=== PATIENT | female | born 1975 | race African-American/Black ===

== ENCOUNTER 2016-03-22 09:53 | Emergency (ER) | payer OTHER ==
[~2016-03-22] VITALS: Ht 170.2 cm; Wt 100.0 kg
[~2016-03-22 09:53] MED LIST: DARV PO; Z.0.NO CURRENT MEDS
[2016-03-22 09:55] VITALS: BP 186/102; PULSE 98; RESP 24; TEMP 98.3; O2SAT 99
[2016-03-22 10:07] VITALS: BP 177/100; PULSE 91; RESP 24; TEMP 98.6; O2SAT 99
[2016-03-22] MEDS ORDERED: SODIUM CHLOR 0.9% 1000 ML INJ 1,000 ML IV SCH (10:10)
[2016-03-22] MEDS ORDERED: PERC10TA27 PO (10:12)
[2016-03-22] MEDS ORDERED: AMLO10TA2 PO (10:12)
[2016-03-22] MEDS ORDERED: SODIUM CHLORIDE 0.9% FLUSH 5 ML FLUSH IVF PRN (10:15)
[2016-03-22] MEDS ORDERED: ONDANSETRON HCL 4 MG/2 ML VIAL IVP ONE (10:15)
[2016-03-22] MEDS ORDERED: KETOROLAC TROMETHAMINE 30 MG/ML (IVP) VIAL IVP ONE (10:15)
[2016-03-22] MEDS ORDERED: PANTOPRAZOLE SODIUM 40 MG VIAL IVP ONE (10:15)
--- NOTE | 2016-03-22 10:18 | PD ---
HPI Chief Complaint: Abdominal Pain Time Seen by Provider: 10:06 Travel History International Travel<30 days: No Contact w/Intl Traveler<30days: No Traveled to known affect area: No History of Present Illness HPI 40yo F with PMH of HTN noncompliant with amlodipine for 2 weeks presents to the ED with c/o epigastric abdominal pain that radiates to left and right upper abdomen for 1 day. States it is sharp and constant. +Nausea. Denies any fever , chest pain, sob, vomiting, weakness or numbness. Pt denies any chronic alcohol use. PFSH Past Medical History Diminished Hearing: No Hypertension: Yes (NOT ON MEDS) Immunizations Current: Yes Menopausal: No : 6 Para: 6 Tubal Ligation: Yes Social History Alcohol Use: No Tobacco Use: No Substance Use: No Allergies-Medications (Allergen,Severity, Reaction): Coded Allergies: No Known Allergies (Verified , 03/22/16) Reported Meds & Prescriptions Reported Meds & Active Scripts Active Omeprazole 40 Mg Cap 40 Mg PO DAILY Reported Percocet (Oxycodone-Acetaminophen) 10-325 mg Tab 1 Tab PO Q4H PRN Amlodipine (Amlodipine Besylate) 10 Mg Tab 10 Mg PO DAILY Review of Systems Except as stated in HPI: all other systems reviewed are Neg Physical Exam Narrative GENERAL: 40yo F in mild distress. SKIN: Warm and dry. HEAD: Atraumatic. Normocephalic. EYES: Pupils equal and round. No scleral icterus. No injection or drainage. ENT: No nasal bleeding or discharge. Mucous membranes pink and moist. NECK: Trachea midline. No JVD. CARDIOVASCULAR: Regular rate and rhythm. No murmur appreciated. RESPIRATORY: No accessory muscle use. Clear to auscultation. Breath sounds equal bilaterally. GASTROINTESTINAL: Abdomen soft, +Epigastric, left upper quadrant. No rebound tenderness or guarding. MUSCULOSKELETAL: No obvious deformities. No clubbing. No cyanosis. No edema. NEUROLOGICAL: Awake and alert. No obvious cranial nerve deficits. Motor grossly within normal limits. Normal speech. PSYCHIATRIC: Appropriate mood and affect; insight and judgment normal. Data Data Last Documented VS Vital Signs Date Time Temp Pulse Resp B/P Pulse Ox O2 Delivery O2 Flow Rate FiO2 03/22/16 10:07 98.6 91 24 177/100 99 03/22/16 09:55 Room Air Orders Complete Blood Count With Diff (03/22/16 10:10) Comprehensive Metabolic Panel (03/22/16 10:10) Lipase (03/22/16 10:10) Prothrombin Time / Inr (Pt) (03/22/16 10:10) Act Partial Throm Time (Ptt) (03/22/16 10:10) Urinalysis - C+S If Indicated (03/22/16 10:10) Ondansetron Inj (Zofran Inj) (03/22/16 10:15) Pantoprazole Inj (Protonix Inj) (03/22/16 10:15) Sodium Chlor 0.9% 1000 Ml Inj (Ns 1000 M (03/22/16 10:10) Sodium Chloride 0.9% Flush (Ns Flush) (03/22/16 10:15) Electrocardiogram (03/22/16 10:10) Ketorolac Inj (Toradol Inj) (03/22/16 10:15) Ed Urine Pregnancytest Poc (03/22/16 10:10) Amlodipine (Norvasc) (03/22/16 10:30) Ct Abd/Pel W Iv Contrast(Rout) (03/22/16 ) Morphine Inj (Morphine Inj) (03/22/16 11:30) Iohexol 350 Inj (Omnipaque 350 Inj) (03/22/16 13:10) Labs Laboratory Tests Test 03/22/16 10:20 White Blood Count 5.6 TH/MM3 Red Blood Count 4.00 MIL/MM3 Hemoglobin 9.9 GM/DL Hematocrit 31.3 % Mean Corpuscular Volume 78.2 FL Mean Corpuscular Hemoglobin 24.8 PG Mean Corpuscular Hemoglobin 31.7 % Concent Red Cell Distribution Width 14.0 % Platelet Count 211 TH/MM3 Mean Platelet Volume 8.7 FL Neutrophils (%) (Auto) 77.5 % Lymphocytes (%) (Auto) 12.4 % Monocytes (%) (Auto) 8.0 % Eosinophils (%) (Auto) 1.6 % Basophils (%) (Auto) 0.5 % Neutrophils # (Auto) 4.3 TH/MM3 Lymphocytes # (Auto) 0.7 TH/MM3 Monocytes # (Auto) 0.4 TH/MM3 Eosinophils # (Auto) 0.1 TH/MM3 Basophils # (Auto) 0.0 TH/MM3 CBC Comment AUTO DIFF Differential Comment AUTO DIFF CONFIRMED Platelet Estimate NORMAL Platelet Morphology Comment NORMAL Prothrombin Time 10.6 SEC Prothromb Time International 1.0 RATIO Ratio Activated Partial 28.9 SEC Thromboplast Time Urine Color YELLOW Urine Turbidity HAZY Urine pH 6.5 Urine Specific [place] 1.018 Urine Protein NEG mg/dL Urine Glucose (UA) NEG mg/dL Urine Ketones NEG mg/dL Urine Occult Blood NEG Urine Nitrite NEG Urine Bilirubin NEG Urine Urobilinogen LESS THAN 2.0 MG/DL Urine Leukocyte Esterase MOD Urine RBC 1 /hpf Urine WBC 8 /hpf Urine Squamous Epithelial 29 /hpf Cells Urine Bacteria RARE /hpf Urine Mucus FEW /lpf Microscopic Urinalysis Comment CULT NOT INDICATED Sodium Level 139 MEQ/L Potassium Level 3.8 MEQ/L Chloride Level 105 MEQ/L Carbon Dioxide Level 25.9 MEQ/L Anion Gap 8 MEQ/L Blood Urea Nitrogen 12 MG/DL Creatinine 0.97 MG/DL Estimat Glomerular Filtration 76 ML/MIN Rate Random Glucose 81 MG/DL Calcium Level 8.4 MG/DL Total Bilirubin 0.5 MG/DL Aspartate Amino Transf 21 U/L (AST/SGOT) Alanine Aminotransferase 24 U/L (ALT/SGPT) Alkaline Phosphatase 66 U/L Total Protein 7.2 GM/DL Albumin 3.2 GM/DL Lipase 99 U/L [facility] Medical Decision Making Medical Screen Exam Complete: Yes Emergency Medical Condition: Yes Interpretation(s) Laboratory Tests Test 03/22/16 10:20 White Blood Count 5.6 TH/MM3 (4.0-11.0) Red Blood Count 4.00 MIL/MM3 (4.00-5.30) Hemoglobin 9.9 GM/DL (11.6-15.3) Hematocrit 31.3 % (35.0-46.0) Mean Corpuscular Volume 78.2 FL (80.0-100.0) Mean Corpuscular Hemoglobin 24.8 PG (27.0-34.0) Mean Corpuscular Hemoglobin 31.7 % Concent (32.0-36.0) Red Cell Distribution Width 14.0 % (11.6-17.2) Platelet Count 211 TH/MM3 (150-450) Mean Platelet Volume 8.7 FL (7.0-11.0) Neutrophils (%) (Auto) 77.5 % (16.0-70.0) Lymphocytes (%) (Auto) 12.4 % (9.0-44.0) Monocytes (%) (Auto) 8.0 % (0.0-8.0) Eosinophils (%) (Auto) 1.6 % (0.0-4.0) Basophils (%) (Auto) 0.5 % (0.0-2.0) Neutrophils # (Auto) 4.3 TH/MM3 (1.8-7.7) Lymphocytes # (Auto) 0.7 TH/MM3 (1.0-4.8) Monocytes # (Auto) 0.4 TH/MM3 (0-0.9) Eosinophils # (Auto) 0.1 TH/MM3 (0-0.4) Basophils # (Auto) 0.0 TH/MM3 (0-0.2) CBC Comment AUTO DIFF Differential Comment AUTO DIFF CONFIRMED Platelet Estimate NORMAL (NORMAL) Platelet Morphology Comment NORMAL (NORMAL) Prothrombin Time 10.6 SEC (9.8-11.6) Prothromb Time International 1.0 RATIO Ratio Activated Partial 28.9 SEC Thromboplast Time (24.3-30.1) Urine Color YELLOW (YELLW/STRAW) Urine Turbidity HAZY (CLEAR) Urine pH 6.5 (5.0-8.5) Urine Specific [place] 1.018 (1.002-1.035) Urine Protein NEG mg/dL (NEG-TRACE) Urine Glucose (UA) NEG mg/dL (NEG) Urine Ketones NEG mg/dL (NEG) Urine Occult Blood NEG (NEG) Urine Nitrite NEG (NEG) Urine Bilirubin NEG (NEG) Urine Urobilinogen LESS THAN 2.0 MG/DL (LESS THAN 2.0) Urine Leukocyte Esterase MOD (NEG) Urine RBC 1 /hpf (0-3) Urine WBC 8 /hpf (0-5) Urine Squamous Epithelial 29 /hpf (0-5) Cells Urine Bacteria RARE /hpf (NONE) Urine Mucus FEW /lpf (OCC) Microscopic Urinalysis Comment CULT NOT INDICATED Sodium Level 139 MEQ/L (136-145) Potassium Level 3.8 MEQ/L (3.5-5.1) Chloride Level 105 MEQ/L (98-107) Carbon Dioxide Level 25.9 MEQ/L (21.0-32.0) Anion Gap 8 MEQ/L (5-15) Blood Urea Nitrogen 12 MG/DL (7-18) Creatinine 0.97 MG/DL (0.50-1.00) Estimat Glomerular Filtration 76 ML/MIN (>89) Rate Random Glucose 81 MG/DL (74-106) Calcium Level 8.4 MG/DL (8.5-10.1) Total Bilirubin 0.5 MG/DL (0.2-1.0) Aspartate Amino Transf 21 U/L (15-37) (AST/SGOT) Alanine Aminotransferase 24 U/L (10-53) (ALT/SGPT) Alkaline Phosphatase 66 U/L (45-117) Total Protein 7.2 GM/DL (6.4-8.2) Albumin 3.2 GM/DL (3.4-5.0) Lipase 99 U/L (73-393) Last Impressions Abdomen/Pelvis CT 03/22/16 0000 Signed Impressions: Service Date/Time: Tuesday, March 22, 2016 12:58 - CONCLUSION: 1. No evidence of acute abdominal or pelvic process. No masses are identified. 2. 4 cm left adnexal cyst. Followup ultrasound in 6 months is recommended if clinically indicated. 3. Possible submucosal fibroid versus endometrial polyp. Ultrasound is recommended Bry Torres MD EKG: NSR 83bpm. Normal axis. No ST segment elevation or depression. Differential Diagnosis Pancreatitis vs. colitis vs. cholecystitis vs. gastritis Narrative Course 40yo F with abdominal pain. Labs reviewed, no leukocytosis. H/H low at 9.9/ 31.3, at baseline. CMP unremarkable. Lipase 99. UA showed mode leukocyte but contaminated with 29 squamous. Blood pressure elevated but pt has been noncompliant with amlodipine so given amlodipine 10mg PO here. Pt given toradol but still with abdominal pain. Pt given morphine and pain has resolved. CTa/p showed no evidence of acute abdominal or pelvic process. 4cm left adnexal cyst. Instructed pt to follow up with ultrasound. Return precautions given. Diagnosis Primary Impression: Gastritis Qualified Code: K29.00 - Acute gastritis without hemorrhage, unspecified gastritis type Patient Instructions: General Instructions Departure Forms: Tests/Procedures Additional Instructions: Please return to the ED if symptoms worsen. Please follow up with your PMD in 3 -7 days. Please follow up with [facility] for 4cm left adnexal cyst. Med/Other Pt SpecificInfo: Prescription(s) given Scripts Omeprazole 40 Mg Cap40 Mg PO DAILY #10 CAP Ref 0 Prov:Minerva Simon DO 03/22/16 Disposition: 01 DISCHARGE HOME Condition: Stable Minerva Simon DO Mar 22, 2016 10:17
[2016-03-22 10:43] LABS: AUTOMATED NEUTROPHIL # 4.3 TH/MM3 (1.8-7.7); BASOPHIL % 0.5 % (0.0-2.0); EOSINOPHIL # 0.1 TH/MM3 (0-0.4); EOSINOPHIL % 1.6 % (0.0-4.0); HEMATOCRIT 31.3 % (35.0-46.0); LYMPH % 12.4 % (9.0-44.0); LYMPHOCYTE # 0.7 TH/MM3 (1.0-4.8); MEAN CELL VOLUME 78.2 FL (80.0-100.0); MEAN CORPUSCULAR HEMOGLOBIN 24.8 PG (27.0-34.0); MEAN CORPUSCULAR HGB CONC 31.7 % (32.0-36.0); NEUT % 77.5 % (16.0-70.0); PLATELET COUNT 211 TH/MM3 (150-450); WHITE BLOOD COUNT 5.6 TH/MM3 (4.0-11.0)
[2016-03-22 10:45] LABS: BACTERIA, URINE RARE /hpf; BLOOD, URINE NEG (NEG); GLUCOSE,URINE NEG (NEG); KETONE, URINE NEG (NEG); MUCUS URINE FEW /lpf (OCC); NITRITE,URINE NEG (NEG); PH, URINE 6.5 (5.0-8.5); SQUAMOUS EPITHELIAL CELL URINE 29 /hpf (0-5); URINE COLOR YELLOW (YELLW/STRAW)
[2016-03-22 10:46] LABS: COMMENT (UR) CULT NOT INDICATED; CULTURE IF INDICATED CULT NOT INDICATED
[2016-03-22 10:49] LABS: HEMO FLAGS AUTO DIFF
[2016-03-22 10:59] LABS: APTT (PATIENT) 28.9 SEC (24.3-30.1); PROTHROMBIN TIME - PATIENT 10.6 SEC (9.8-11.6)
[2016-03-22 11:03] LABS: ALT (GPT) 24 U/L (10-53); ANION GAP 8 MEQ/L (5-15); AST (GOT) 21 U/L (15-37); BICARBONATE 25.9 MEQ/L (21.0-32.0); BLOOD UREA NITROGEN 12 MG/DL (7-18); CHLORIDE 105 MEQ/L (98-107); GLOMERULAR FILTRATION RATE 76 ML/MIN (>89); POTASSIUM 3.8 MEQ/L (3.5-5.1); SODIUM (NA) 139 MEQ/L (136-145)
[2016-03-22 11:05] LABS: ALKALINE PHOSPHATASE 66 U/L (45-117); TOTAL BILIRUBIN ADULT 0.5 MG/DL (0.2-1.0)
[2016-03-22 11:24] LABS: SCAN/DIFF AUTO DIFF CONFIRMED
[2016-03-22 11:25] LABS: PLATELET ESTIMATE SMEAR NORMAL (NORMAL); PLATELET MORPHOLOGY NORMAL (NORMAL)
[2016-03-22] MEDS ORDERED: MORPHINE SULFATE 4 MG/ML INJ IV PUSH ONE (11:30)
[2016-03-22 13:00] VITALS: BP 139/88; RESP 18; O2SAT 99
[2016-03-22] MEDS ORDERED: IOHEXOL 350 MG/ML 10 ML VIAL (for RAD DIAG) IV ONE (13:10)
--- NOTE | 2016-03-22 14:30 | RADRPT ---
EXAM DATE/TIME: 03/22/2016 12:58 [facility] COMPARISON: No previous studies available for comparison. INDICATIONS : Epigastric pain with nausea. IV CONTRAST: 90 cc Omnipaque 350 (iohexol) IV ORAL CONTRAST: No oral contrast ingested. RADIATION DOSE: 10.92 CTDIvol (mGy) MEDICAL HISTORY : Hypertension. SURGICAL HISTORY : Tubal ligation. ENCOUNTER: Initial ACUITY: 1 day PAIN SCALE: 5/10 LOCATION: Bilateral upper quadrant TECHNIQUE: Volumetric scanning of the abdomen and pelvis was performed. Using automated exposure control and ad justment of the mA and/or kV according to patient size, radiation dose was kept as low as reasonably achievable to obtain optimal diagnostic quality images. FINDINGS: Examination of the lung bases demonstrates no abnormality. No pleural fluid is identified. No pulmona ry nodules are present. The liver and spleen are normal in size and no focal defects are identified. The gallbladder and pancreas are unremarkable. No intrahepatic or extrahepatic ductal dilatation is s een. The adrenal glands and kidneys appear normal bilaterally. No hydronephrosis or mass lesions are identified. Examination of the right lower quadrant demonstrates no abnormality. The appendix is iden tified and appears normal. Examination of the pelvis demonstrates no evidence of free fluid or pelvic mass. No abnormally enlarg ed inguinal or retroperitoneal lymph nodes are present. The bladder is unremarkable. In the uterus th ere is thickening of the image a cavity with a soft tissue density measuring 2.5 cm which may reflect a submucosal fibroid. Ultrasound examination is recommended if clinically indicated. There is a 4 cm cystic mass in the left adnexa consisting with a cyst. Followup ultrasound in 6 months is recommend ed if clinically indicated. CONCLUSION: 1. No evidence of acute abdominal or pelvic process. No masses are identified. 2. 4 cm left adnexal cyst. Followup ultrasound in 6 months is recommended if clinically indicated. 3. Possible submucosal fibroid versus endometrial polyp. Ultrasound is recommended Bry Torres MD on March 22, 2016 at 14:18 Board Certified Radiologist. This report was verified electronically.
[2016-03-22] MEDS ORDERED: OMEP40CA2 PO (14:43)
--- NOTE | 2016-03-22 19:36 | EKG ---
Date Performed: 03/22/2016 Time Performed: 09:36:37 PTAGE: 40 years EKG: Sinus rhythm NORMAL ECG NO PREVIOUS TRACING DOCTOR: Jen Schumacher Interpretating Date/Time 03/22/2016 19:35:17
== END 2016-03-22 15:49 | disposition home or self-care (01) ==
LOC: NEPE 09:53
DX: K29.00 Acute gastritis without bleeding (principal); I10 Essential (primary) hypertension; R11.0 Nausea
CPT/HCPCS: 74177; 80053; 81001; 83690; 84703; 85025; 85610; 85730; 93005; 96361; 96374; 96375; 99284; C9113; J1885; J2270; J2405; J7030; Q9967

== ENCOUNTER 2016-06-18 12:35 | Emergency (ER) | payer MEDICAID, OTHER ==
[~2016-06-18] VITALS: Ht 170.2 cm; Wt 100.0 kg
[~2016-06-18 12:35] MED LIST changes: +AMLO10TA2 PO; -DARV PO; +OMEP40CA2 PO; +PERC10TA27 PO; -Z.0.NO CURRENT MEDS
[2016-06-18 12:36] VITALS: BP 167/100; PULSE 84; RESP 15; TEMP 98.2; O2SAT 98
[2016-06-18] MEDS ORDERED: CYCL1TAB29 PO (12:46)
[2016-06-18] MEDS ORDERED: SODIUM CHLOR 0.9% 1000 ML INJ 1,000 ML IV SCH (12:52)
[2016-06-18] MEDS ORDERED: ONDANSETRON HCL 4 MG/2 ML VIAL IVP ONE (13:00)
[2016-06-18] MEDS ORDERED: PANTOPRAZOLE SODIUM 40 MG VIAL IVP ONE (13:00)
--- NOTE | 2016-06-18 13:03 | PD ---
HPI Chief Complaint: GI Complaint Time Seen by Provider: 12:48 Travel History International Travel<30 days: No Contact w/Intl Traveler<30days: No Traveled to known affect area: No History of Present Illness HPI 41-year-old female presents today with complaints of nausea vomiting diarrhea since yesterday. The patient states that she ate at [employer] yesterday and then shortly thereafter started experiencing nausea. She states that the vomiting and diarrhea started a few hours later. She denies any fevers, chills. She reports crampy abdominal pain. She denies any dysuria, urgency, frequency. She denies any vaginal discharge. PFSH Past Medical History Diminished Hearing: No Hypertension: Yes Musculoskeletal: Yes (back pain) Immunizations Current: Yes Influenza Vaccination: No ?: Not LMP: 06/06/16 Menopausal: No : 6 Para: 6 Tubal Ligation: Yes Past Surgical History Gynecologic Surgery: Yes (TUBAL LIGATION ) Social History Alcohol Use: Yes (OCC) Tobacco Use: No Substance Use: No Allergies-Medications (Allergen,Severity, Reaction): Coded Allergies: No Known Allergies (Verified , 06/18/16) Reported Meds & Prescriptions Reported Meds & Active Scripts Active Zofran (Ondansetron HCl) 4 Mg Tab 4 Mg PO Q8HR PRN Bentyl (Dicyclomine HCl) 10 Mg Cap 10 Mg PO TID PRN Omeprazole 40 Mg Cap 40 Mg PO DAILY Reported Flexeril (Cyclobenzaprine HCl) 10 Mg Tab 10 Mg PO TID Percocet (Oxycodone-Acetaminophen) 10-325 mg Tab 1 Tab PO Q4H PRN Amlodipine (Amlodipine Besylate) 10 Mg Tab 10 Mg PO DAILY Review of Systems Except as stated in HPI: all other systems reviewed are Neg General / Constitutional: No: Fever, Chills HENT: No: Headaches, Lightheadedness Cardiovascular: No: Chest Pain or Discomfort, Palpitations Respiratory: No: Cough, Shortness of Breath Gastrointestinal: Positive: Nausea, Vomiting, Diarrhea, Abdominal Pain (crampy pain) Genitourinary: No: Frequency, Dysuria Musculoskeletal: No: Weakness Neurologic: No: Weakness, Dizziness Physical Exam Narrative GENERAL: Well-nourished, well-developed patient. SKIN: Focused skin assessment warm/dry. HEAD: Normocephalic/atraumatic. EYES: No scleral icterus. No injection or drainage. NECK: Supple, trachea midline. CARDIOVASCULAR: Regular rate and rhythm without murmurs, gallops, or rubs. RESPIRATORY: Breath sounds equal bilaterally. No accessory muscle use. GASTROINTESTINAL: Abdomen soft, nondistended. She has subjective cramps in her periumbilical area. There is no rebound or guarding on exam. MUSCULOSKELETAL: No cyanosis, or edema. NEUROLOGICAL: Awake and alert. Cranial nerves II through XII intact. Motor grossly within normal limits. Five out of 5 muscle strength in all muscle groups. Normal speech. Data Data Last Documented VS Vital Signs Date Time Temp Pulse Resp B/P Pulse Ox O2 Delivery O2 Flow Rate FiO2 06/18/16 15:41 97.9 80 17 145/83 100 Room Air Orders Complete Blood Count With Diff (06/18/16 12:52) Comprehensive Metabolic Panel (06/18/16 12:52) Lipase (06/18/16 12:52) Urinalysis - C+S If Indicated (06/18/16 12:52) Iv Access Insert/Monitor (06/18/16 12:52) Ondansetron Inj (Zofran Inj) (06/18/16 13:00) Pantoprazole Inj (Protonix Inj) (06/18/16 13:00) Sodium Chlor 0.9% 1000 Ml Inj (Ns 1000 M (06/18/16 12:52) Labs Laboratory Tests Test 06/18/16 06/18/16 13:00 15:15 White Blood Count 5.3 TH/MM3 Red Blood Count 4.07 MIL/MM3 Hemoglobin 9.9 GM/DL Hematocrit 31.0 % Mean Corpuscular Volume 76.2 FL Mean Corpuscular Hemoglobin 24.2 PG Mean Corpuscular Hemoglobin 31.8 % Concent Red Cell Distribution Width 15.7 % Platelet Count 207 TH/MM3 Mean Platelet Volume 8.3 FL Neutrophils (%) (Auto) 53.0 % Lymphocytes (%) (Auto) 32.8 % Monocytes (%) (Auto) 8.4 % Eosinophils (%) (Auto) 4.9 % Basophils (%) (Auto) 0.9 % Neutrophils # (Auto) 2.8 TH/MM3 Lymphocytes # (Auto) 1.7 TH/MM3 Monocytes # (Auto) 0.4 TH/MM3 Eosinophils # (Auto) 0.3 TH/MM3 Basophils # (Auto) 0.0 TH/MM3 CBC Comment AUTO DIFF Differential Comment AUTO DIFF CONFIRMED Sodium Level 140 MEQ/L Potassium Level 3.8 MEQ/L Chloride Level 105 MEQ/L Carbon Dioxide Level 29.4 MEQ/L Anion Gap 6 MEQ/L Blood Urea Nitrogen 11 MG/DL Creatinine 1.03 MG/DL Estimat Glomerular Filtration 71 ML/MIN Rate Random Glucose 86 MG/DL Calcium Level 8.4 MG/DL Total Bilirubin 0.3 MG/DL Aspartate Amino Transf 20 U/L (AST/SGOT) Alanine Aminotransferase 25 U/L (ALT/SGPT) Alkaline Phosphatase 73 U/L Total Protein 7.6 GM/DL Albumin 3.3 GM/DL Lipase 115 U/L Urine Color COLORLESS Urine Turbidity CLEAR Urine pH 6.0 Urine Specific [place] 1.006 Urine Protein NEG mg/dL Urine Glucose (UA) NEG mg/dL Urine Ketones NEG mg/dL Urine Occult Blood NEG Urine Nitrite NEG Urine Bilirubin NEG Urine Urobilinogen LESS THAN 2.0 MG/DL Urine Leukocyte Esterase NEG Urine RBC 1 /hpf Urine WBC LESS THAN 1 /hpf Urine Squamous Epithelial <1 /hpf Cells Urine Mucus FEW /lpf Microscopic Urinalysis Comment CULT NOT INDICATED MDM Medical Decision Making Medical Screen Exam Complete: Yes Emergency Medical Condition: Yes Differential Diagnosis Gastroenteritis versus food related illness versus appendicitis versus cholecystitis Narrative Course 41-year-old female presents with nausea vomiting and diarrhea. Patient had suspicious foods that a chicken restaurant. She has no fever. Her abdomen is soft and benign on exam. Laboratory tests show slightly elevated creatinine. There is no evidence of other findings. The patient is given 1 L of IV fluid. She's been given IVD antiemetics. She'll be discharged with a prescription for Bentyl and Zofran. She instructed return she does any worsening pain or fevers or chills. Diagnosis Primary Impression: suspected food related illness Additional Instructions: [place] diet. Advance in 1-2 days. Med/Other Pt SpecificInfo: Prescription(s) given Scripts Ondansetron (Zofran)4 Mg Tab4 Mg PO Q8HR PRN (NAUSEA OR VOMITING) #12 TAB Ref 0 Prov:Compa León MD 06/18/16 Dicyclomine (Bentyl)10 Mg Cap10 Mg PO TID PRN (Bowel Management) #12 CAP Ref 0 Prov:Compa León MD 06/18/16 Disposition: 01 DISCHARGE HOME Condition: Stable Compa León MD Jun 18, 2016 13:03
[2016-06-18 13:12] LABS: AUTOMATED NEUTROPHIL # 2.8 TH/MM3 (1.8-7.7); BASOPHIL % 0.9 % (0.0-2.0); EOSINOPHIL # 0.3 TH/MM3 (0-0.4); EOSINOPHIL % 4.9 % (0.0-4.0); LYMPH % 32.8 % (9.0-44.0); LYMPHOCYTE # 1.7 TH/MM3 (1.0-4.8); MEAN CELL VOLUME 76.2 FL (80.0-100.0); MEAN CORPUSCULAR HEMOGLOBIN 24.2 PG (27.0-34.0); MEAN CORPUSCULAR HGB CONC 31.8 % (32.0-36.0); MONO % 8.4 % (0.0-8.0); PLATELET COUNT 207 TH/MM3 (150-450); RED BLOOD COUNT 4.07 MIL/MM3 (4.00-5.30); RED CELL DISTRIBUTION WIDTH 15.7 % (11.6-17.2); WHITE BLOOD COUNT 5.3 TH/MM3 (4.0-11.0)
[2016-06-18 13:13] LABS: HEMO FLAGS AUTO DIFF
[2016-06-18 13:25] LABS: ALT (GPT) 25 U/L (10-53); ANION GAP 6 MEQ/L (5-15); AST (GOT) 20 U/L (15-37); BICARBONATE 29.4 MEQ/L (21.0-32.0); BLOOD UREA NITROGEN 11 MG/DL (7-18); CHLORIDE 105 MEQ/L (98-107); GLOMERULAR FILTRATION RATE 71 ML/MIN (>89); POTASSIUM 3.8 MEQ/L (3.5-5.1); SODIUM (NA) 140 MEQ/L (136-145)
[2016-06-18 13:27] LABS: ALKALINE PHOSPHATASE 73 U/L (45-117); TOTAL BILIRUBIN ADULT 0.3 MG/DL (0.2-1.0)
[2016-06-18 14:09] LABS: SCAN/DIFF AUTO DIFF CONFIRMED
[2016-06-18 15:41] VITALS: BP 145/83; PULSE 80; RESP 17; TEMP 97.9; O2SAT 100
[2016-06-18 15:42] LABS: BLOOD, URINE NEG (NEG); COMMENT (UR) CULT NOT INDICATED; CULTURE IF INDICATED CULT NOT INDICATED; GLUCOSE,URINE NEG (NEG); KETONE, URINE NEG (NEG); MUCUS URINE FEW /lpf (OCC); NITRITE,URINE NEG (NEG); SQUAMOUS EPITHELIAL CELL URINE <1 /hpf (0-5); URINE COLOR COLORLESS (YELLW/STRAW)
[2016-06-18] MEDS ORDERED: DICY10 PO (15:46)
[2016-06-18] MEDS ORDERED: ZOFR4TAB PO (15:46)
== END 2016-06-18 16:15 | disposition home or self-care (01) ==
LOC: NEPD 12:35
DX: R11.2 Nausea with vomiting, unspecified (principal); R19.7 Diarrhea, unspecified; I10 Essential (primary) hypertension
CPT/HCPCS: 80053; 81001; 83690; 85025; 96361; 96374; 96375; 99284; C9113; J2405; J7030